=== PATIENT | female | born 1930 ===

== ENCOUNTER 2017-06-05 18:34 | Observation (INO) | payer MEDICARE, OTHER ==
--- NOTE | 2017-06-05 19:29 | ED PDOC ---
HPI: Chest Pain Time Seen by Provider: 06/05/17 18:38 Chief Complaint (Nursing): Chest Pain Chief Complaint (Provider): Chest pain History Per: Patient (due to patient's dementia, patient is a poor historian.), Family History/Exam Limitations: clinical condition (patient has dementia) Onset/Duration Of Symptoms: Days (1x week) Current Symptoms Are (Timing): Still Present Severity: Moderate Associated Symptoms: denies: Nausea, Dyspnea, Diaphoresis, Syncope Additional Complaint(s): 87 year old female with a pertinent medical history of hypertension, arthritis, gastritis, dementia, and Parkinson's disease is brought into the ED with complaints of chest pain (as per patient's daughter) that she has had for 1x week. Due to patient's dementia, patient is a poor historian. Patient has the power of an sports attorney (her daughter). Patient currently is complaining of right arm pain, and daughter states that the patient has been complaining of right shoulder and chest pain for 1x week. Family denies that the patient has had shortness of breath, fevers, cough, nausea, vomiting, diarrhea. Of note: patient's family states that the patient has been crying all week because she recently learned about her 's . PMD: Saud Sosa MD Past Medical History Reviewed: Historical Data, Nursing Documentation, Vital Signs Vital Signs: Last Vital Signs Temp 98.2 F 06/06/17 13:00 Pulse 73 06/06/17 13:00 Resp 20 06/06/17 13:00 BP 117/70 06/06/17 13:00 Pulse Ox 95 06/06/17 13:00 - Medical History PMH: Arthritis, Dementia, Gastritis, HTN, Osteoporosis, Parkinson's Disease - Surgical History Surgical History: Hernia Repair Other surgeries: hysterectomy - Family History Family History: States: No Known Family Hx - Living Arrangements Living Arrangements: Prison/Assist Lvng - Social History Current smoker - smoking cessation education provided: No Alcohol: None Drugs: Denies - Home Medications Home Medications: Ambulatory Orders Medication Instructions Recorded Acetaminophen [Tylenol (Renal)] 650 mg PO Q4 PRN 06/05/17 Albuterol/Ipratropium [Duoneb 3 3 ml INH Q4 PRN 06/05/17 mg/0.5 mg (3 ml) UD] Aspirin [Aspirin Chewable] 81 mg PO DAILY 06/05/17 Benztropine [Cogentin] 0.5 mg PO DAILY 06/05/17 Bisacodyl [Dulcolax] 10 mg RC DAILY PRN 06/05/17 Donepezil [Aricept] 10 mg PO DAILY 06/05/17 Famotidine [Pepcid] 20 mg PO DAILY 06/05/17 Levothyroxine [Synthroid] 25 mcg PO DAILY 06/05/17 Losartan Potassium 25 mg PO DAILY 06/05/17 Memantine [Namenda] 10 mg PO DAILY 06/05/17 Metoprolol Succinate [Toprol XL] 25 mg PO DAILY 06/05/17 Montelukast [Singulair] 10 mg PO DAILY 06/05/17 Nateglinide [Starlix] 60 mg PO DAILY 06/05/17 Pravastatin Sodium [Pravachol] 10 mg PO DAILY 06/05/17 Triamterene/Hydrochlorothiazid 1 cap PO DAILY 06/05/17 [Triamterene-Hctz 37.5-25 mg Cp] Lidocaine 5% [Lidoderm] 1 each TP DAILY #10 patch 06/06/17 traMADol [Ultram] 50 mg PO TID PRN #20 tab 06/06/17 - Allergies Allergies/Adverse Reactions: Allergies Allergy/AdvReac Type Severity Reaction Status Date / Time Cephalosporins Allergy RASH Verified 06/05/17 21:24 Penicillins Allergy RASH Verified 06/05/17 18:37 Quinolones Allergy RASH Verified 06/05/17 21:24 shellfish derived Allergy RASH Verified 06/05/17 21:24 Sulfa (Sulfonamide Allergy RASH Verified 06/05/17 21:24 Antibiotics) LUISA Risk Score for UA/NSTEMI - LUISA Risk Score Age > 64: YES 3 or more CAD Risk Factors: YES Known CAD (Stenosis greater than 50%): NO Aspirin use in past 7 days: YES Severe Angina: NO EKG ST changes greater than 0.5mm: NO Positive Cardiac Marker: NO LUISA Score: 3 Risk %: 13% Wells Criteria for PE - Wells Criteria for Pulmonary Embolism Clinical Signs and Symptoms of DVT: No P.E is #1 Diagnosis, or Equally Likely: No Heart Rate >100: No Immobilization at least 3 days;Surgery previous 4 weeks: No Previous, objectively diagnosed PE or DVT: No Hemoptysis: No Malignancy w/treatment within 6 months, or palliative: No Total Score: 0 Review of Systems Review Of Systems: ROS cannot be obtained secondary to pt's inabilty to answer questions. (patient is a poor historian due to dementia) Constitutional: Negative for: Fever Cardiovascular: Positive for: Chest Pain Respiratory: Negative for: Shortness of Breath Gastrointestinal: Negative for: Nausea, Vomiting, Abdominal Pain, Diarrhea Musculoskeletal: Positive for: Shoulder Pain (right), Arm Pain (right ) Physical Exam - Reviewed Nursing Documentation Reviewed: Yes Vital Signs Reviewed: Yes - Physical Exam Appears: Positive for: Well, Non-toxic, No Acute Distress Head Exam: Positive for: ATRAUMATIC, NORMOCEPHALIC Skin: Positive for: Normal Color, Warm, Dry Eye Exam: Positive for: Normal appearance, EOMI, PERRL ENT: Positive for: Normal ENT Inspection Cardiovascular/Chest: Positive for: Regular Rate, Rhythm Respiratory: Positive for: Normal Breath Sounds. Negative for: Respiratory Distress Gastrointestinal/Abdominal: Positive for: Normal Exam, Soft. Negative for: Tenderness Extremity: Positive for: Normal ROM Neurologic/Psych: Positive for: Alert, Oriented (x1, at baseline) - Laboratory Results Result Diagrams: 06/06/17 06:10 06/06/17 06:10 - ECG ECG: Positive for: Interpreted By Me, Viewed By Ri ECG Rhythm: Positive for: Normal QRS, Sinus Rhythm (normal, at 62 beats per minute), 1st Degree Heart Block (AV block). Negative for: ST/T Changes O2 Sat by Pulse Oximetry: 99 (RA) Pulse Ox Interpretation: Normal - Radiology X-Ray: Interpreted by Me, Viewed By Me X-Ray Interpretation: Mediastinum (hilar prominence), Cardiomegaly - CT Scan/US US duplex lower extremities Other Rad Studies (CT/US): Read By Radiologist, Radiology Report Reviewed (see MDM section for US findings) CT chest Other Rad Studies (CT/US): Read By Radiologist, Radiology Report Reviewed (see MDM section for CT findings) Medical Decision Making Medical Decision Makin:38 Initial impression: 87 year old female with chest pain and right arm pain. Differential diagnoses include but are not limited to acute coronary syndrome, arthritis of the right arm, and mood disorder. Initial plan: * EKG * b-type natriuretic peptide * BMP * troponin I * CBC * XRay chest one view * XRay right shoulder * aspirin 325mg PO * reevaluation 20:59 US duplex lower extremities read and reviewed by radiologist FINDINGS: Right deep veins: Normal color and spectral Doppler flow. Normal compressibility. No deep vein thrombosis from common femoral to popliteal vein. Right superficial veins: Unremarkable. Left deep veins: Normal color and spectral Doppler flow. Normal compressibility. No deep vein thrombosis from common femoral to popliteal vein. Left superficial veins: Unremarkable. Soft tissues: No popliteal cyst. IMPRESSION: 1. No evidence of DVT within the lower extremities 22:07 CT chest read and reviewed by radiologist FINDINGS: Limitations: Motion artifact - mild. Lungs: Mild centrilobular emphysematous changes. Mild peripheral atelectasis/ scarring. No consolidation. Pleural space: No pneumothorax. No significant effusion. Heart: Mild cardiomegaly. No significant pericardial effusion. Mediastinum: Small hiatal hernia. Bones/joints: Multiple small sclerotic lesions throughout visualized bones. Mild degenerative changes of spine. No acute fracture. Soft tissues: Unremarkable. Vasculature: Mild atherosclerotic disease of aorta. Enlargement of pulmonary arteries. No aneurysm. Lymph nodes: No pathologically enlarged lymph nodes. Liver: Several discrete fat-containing lesions compatible with lipomas. Fatty infiltration. Small hepatic calcification. Kidneys and ureters: Few too small to characterize lesions within LEFT kidney. IMPRESSION: 1. Cardiomegaly. 2. Pulmonary hypertension. 3. Multiple sclerotic bone lesions. DDX: Metastases, osteopoikilosis. Suggest bone scan. 4. Incidental/non-acute findings are described above Scribe Attestation: Documented by Carina Medellin, acting as a scribe for Keaton Hong MD. Provider Scribe Attestation: All medical record entries made by the Scribe were at my direction and personally dictated by me. I have reviewed the chart and agree that the record accurately reflects my personal performance of the history, physical exam, medical decision making, and the department course for this patient. I have also personally directed, reviewed, and agree with the discharge instructions and disposition. Disposition - Clinical Impression Clinical Impression: Chest pain - Patient ED Disposition Is Patient to be Admitted: Yes Discussed With : Meagan Catherine Doctor Will See Patient In The: ED Counseled Patient/Family Regarding: Studies Performed, Diagnosis - Disposition Disposition Time: 21:00 Condition: FAIR - Pt Status Changed To: Hospital Disposition Of: Observation - POA Present On Arrival: None
[2017-06-05 19:31] LABS: BASO # 0.1 K/uL (0.0-0.2); EOS # 1.4 K/uL (0.0-0.7)
[2017-06-05 19:36] LABS: BLOOD UREA NITROGEN 35 mg/dl (7-17); CALCIUM 9.6 mg/dL (8.4-10.2); CARBON DIOXIDE 25 mmol/L (22-30); GFR AFRICAN-AMERICAN > 60; GLUCOSE,RANDOM 137 mg/dL (65-105); SODIUM 133 mmol/l (132-148)
[2017-06-05 19:38] LABS: BASO % 0.7 % (0.0-2.0); CHLORIDE 98 mmol/L (98-107); EOS % 10.4 % (0.0-4.0); HEMATOCRIT 36.1 % (34.0-47.0); LYMPH # 3.5 K/uL (1.0-4.3); LYMPH % 25.7 % (20.0-40.0); MEAN CELL VOLUME 93.5 fl (81.0-99.0); MEAN CORPUSCULAR HEMOGLOBIN 31.4 pg (27.0-31.0); MEAN CORPUSCULAR HGB CONC 33.6 g/dL (33.0-37.0); MEAN PLATELET VOLUME 6.9 fl (7.2-11.7); MONO % 7.2 % (0.0-10.0); NEUT # 7.6 K/uL (1.8-7.0); NRBC % 0.5 % (0.0-0.0); WHITE BLOOD COUNT 13.5 K/uL (4.8-10.8)
--- NOTE | 2017-06-05 21:00 | US ---
EXAM: US Duplex Bilateral Lower Extremity Veins CLINICAL HISTORY: 87 years old, female; Condition or disease; Other: Swelling; Additional info: Leg swelling bilateral TECHNIQUE: Real-time ultrasound scan of the veins of the bilateral lower extremities with color Doppler flow, spectral waveform analysis and compression. COMPARISON: No relevant prior studies available. FINDINGS: Right deep veins: Normal color and spectral Doppler flow. Normal compressibility. No deep vein thrombosis from common femoral to popliteal vein. Right superficial veins: Unremarkable. Left deep veins: Normal color and spectral Doppler flow. Normal compressibility. No deep vein thrombosis from common femoral to popliteal vein. Left superficial veins: Unremarkable. Soft tissues: No popliteal cyst. IMPRESSION: 1. No evidence of DVT within the lower extremities.
--- NOTE | 2017-06-05 21:15 | CP.PCM.HP ---
History of Present Illness - History of Present Illness History of Present Illness: CC: R shoulder/R chest pain, emotional distress History largely from ER staff and chart as patient with dementia and unable to provide much HPI: This is an 87 y/o female NH resident with MHx significant for HTN, osteoarthritis, and Parkinson's disease/dementia among other conditions who is brought in by daughter with c/o R shoulder and R chest pain. Apparently this has been going on for a week. The patient has denied any SOB, f/c, cough, n/v/ d. Patient has been emotionally distressed for past several days as well after hearing about her 's . ROS: Unable to obtain 2/2 dementia MHx: HTN, osteoarthritis, Parkinson's disease/dementia, gastritis SHx: None reported Allergies: Cephalsoprins, PCN, fluouroquinolones, shellfish Medications: as per med rec Family Hx: Unable to obtain Social Hx: Lives in NH, no tobacco, no EtOH Surrogate: Daughter, info in chart PCP: Sheila Present on Admission - Present on Admission Any Indicators Present on Admission: No Past Patient History - Past Social History Alcohol: None Drugs: Denies - CARDIAC Hx Hypertension: Yes - NEUROLOGICAL Hx Dementia: Yes Hx Parkinson's Disease: Yes - MUSCULOSKELETAL/RHEUMATOLOGICAL Hx Arthritis: Yes Hx Osteoporosis: Yes - GASTROINTESTINAL Hx Gastritis: Yes - PSYCHIATRIC Hx Substance Use: No Meds Allergies/Adverse Reactions: Allergies Allergy/AdvReac Type Severity Reaction Status Date / Time Cephalosporins Allergy RASH Verified 06/05/17 21:24 Penicillins Allergy RASH Verified 06/05/17 18:37 Quinolones Allergy RASH Verified 06/05/17 21:24 shellfish derived Allergy RASH Verified 06/05/17 21:24 Sulfa (Sulfonamide Allergy RASH Verified 06/05/17 21:24 Antibiotics) Physical Exam - Constitutional Appears: No Acute Distress - Head Exam Head Exam: ATRAUMATIC, NORMOCEPHALIC - Eye Exam Eye Exam: EOMI, PERRL - ENT Exam ENT Exam: Mucous Membranes Moist - Neck Exam Neck exam: Positive for: Full Rom - Respiratory Exam Respiratory Exam: Clear to Auscultation Bilateral, NORMAL BREATHING PATTERN - Cardiovascular Exam Cardiovascular Exam: REGULAR RHYTHM, +S1, +S2 - GI/Abdominal Exam GI & Abdominal Exam: Normal Bowel Sounds, Soft - Extremities Exam Extremities exam: Positive for: normal inspection Additional comments: limited eval as patient does not comply with exam; b/l fingers noted with nail deformities likely 2/2 fungal infection - Neurological Exam Additional comments: awake, confused - Skin Skin Exam: Dry, Warm Results - Vital Signs Recent Vital Signs: Last Vital Signs Temp 98.9 F 06/05/17 18:38 Pulse 76 06/05/17 18:38 Resp 20 06/05/17 18:38 BP 136/77 06/05/17 18:38 Pulse Ox 99 06/05/17 21:05 - Labs Result Diagrams: 06/05/17 19:19 06/05/17 19:19 Labs: Laboratory Results - last 24 hr 06/05/17 06/05/17 19:19 19:19 WBC 13.5 H RBC 3.86 Hgb 12.1 Hct 36.1 MCV 93.5 MCH 31.4 H MCHC 33.6 RDW 15.0 H Plt Count 267 MPV 6.9 L Neut % (Auto) 56.0 Lymph % (Auto) 25.7 [place] % (Auto) 7.2 Eos % (Auto) 10.4 H Baso % (Auto) 0.7 Neut # 7.6 H Lymph # 3.5 [place] # 1.0 H Eos # 1.4 H Baso # 0.1 Sodium 133 Potassium 5.0 Chloride 98 Carbon Dioxide 25 Anion Gap 15 BUN 35 H Creatinine 1.0 Est GFR ( Amer) > 60 Est GFR (Non-Af Amer) 52 Random Glucose 137 H Calcium 9.6 Troponin I < 0.0120 NT-Pro-B Natriuret Pep 378 - EKG Data EKG Interpreted by: Myself EKG shows normal: Sinus rhythm - EKG Data EKG comments: 1 deg HB, poor RW progression - Imaging and Cardiology Venous US Status: Report reviewed by me Additional comment: no DVT Chest x-ray Status: Image reviewed by me (?R hilar mass) Assessment & Plan (1) Chest pain Assessment and Plan: 87 y/o female with R chest/shoulder pain in the setting of chronic osteoarthritis; also with possible adj d/o 2/2 husbands ; hilar mass. 1) Shoulder/CP, osteoarthritis -- likely pain is due to osteoarthritis -Will cont telemetry, repeat EKG AM -Will cont serial troponins -further w/u if any indication of cardiac disease -Pain mgmt -Cont ASA 325 daily 2) Possible adjustment disorder due to 's -- psych consult in AM 3) Hilar mass -- pending CT; pulm consult depending on results 4) HTN -- stable 5) DVT PPx -- SC lovenox Status: Acute (2) Shoulder pain Status: Acute (3) Adjustment disorder with depressed mood Status: Acute
--- NOTE | 2017-06-05 22:07 | CT ---
EXAM: CT Chest Without Intravenous Contrast CLINICAL HISTORY: 87 years old, female; Signs and symptoms; Shortness of breath and other: Chest pain; Patient HX: HTN parkinson's. Dementia TECHNIQUE: Axial computed tomography images of the chest without intravenous contrast. All CT scans at this facility use one or more dose reduction techniques, viz.: automated exposure control; ma/kV adjustment per patient size (including targeted exams where dose is matched to indication; i.e. head); or iterative reconstruction technique. Coronal and sagittal reformatted images were created and reviewed. COMPARISON: CR - CHEST ONE VIEW 06/05/2017 7:13:16 PM FINDINGS: Limitations: Motion artifact - mild. Lungs: Mild centrilobular emphysematous changes. Mild peripheral atelectasis/scarring. No consolidation. Pleural space: No pneumothorax. No significant effusion. Heart: Mild cardiomegaly. No significant pericardial effusion. Mediastinum: Small hiatal hernia. Bones/joints: Multiple small sclerotic lesions throughout visualized bones. Mild degenerative changes of spine. No acute fracture. Soft tissues: Unremarkable. Vasculature: Mild atherosclerotic disease of aorta. Enlargement of pulmonary arteries. No aneurysm. Lymph nodes: No pathologically enlarged lymph nodes. Liver: Several discrete fat-containing lesions compatible with lipomas. Fatty infiltration. Small hepatic calcification. Kidneys and ureters: Few too small to characterize lesions within LEFT kidney. IMPRESSION: 1. Cardiomegaly. 2. Pulmonary hypertension. 3. Multiple sclerotic bone lesions. DDX: Metastases, osteopoikilosis. Suggest bone scan. 4. Incidental/non-acute findings are described above.
[2017-06-06 07:08] LABS: HEMATOCRIT 33.9 % (34.0-47.0); MEAN CELL VOLUME 92.5 fl (81.0-99.0); MEAN CORPUSCULAR HEMOGLOBIN 31.4 pg (27.0-31.0); MEAN CORPUSCULAR HGB CONC 33.9 g/dL (33.0-37.0); RED CELL DISTRIBUTION WIDTH 15.3 % (11.5-14.5); WHITE BLOOD COUNT 9.8 K/uL (4.8-10.8)
[2017-06-06 07:17] LABS: BLOOD UREA NITROGEN 30 mg/dl (7-17); CALCIUM 9.6 mg/dL (8.4-10.2); CARBON DIOXIDE 28 mmol/L (22-30); CHLORIDE 101 mmol/L (98-107); GFR AFRICAN-AMERICAN > 60; GLUCOSE,RANDOM 135 mg/dL (65-105); SODIUM 138 mmol/l (132-148)
[2017-06-06 07:20] LABS: POTASSIUM 4.4 MMOL/L (3.6-5.0)
[2017-06-06] MEDS ORDERED: Enoxaparin 40 mg Syringe SC SCH (09:00)
--- NOTE | 2017-06-06 09:14 | RAD ---
PROCEDURE: CHEST RADIOGRAPH, 1 VIEW HISTORY: chest pain COMPARISON: Subsequent chest CT dated 06/05/2017 21:10 p.m. FINDINGS: LUNGS: Prominent right hilar density appears to be a function of pulmonary arterial hypertension and rotation of the patient to the right slightly. Left base is difficult to penetrate due to cardiomegaly but no infiltrate was demonstrated in the chest CT following this exam. PLEURA: No pneumothorax or pleural fluid seen. CARDIOVASCULAR: Cardiomegaly is noted with prominent right hilum as discussed above. OSSEOUS STRUCTURES: Multilevel thoracic spondylosis. VISUALIZED UPPER ABDOMEN: Normal. OTHER FINDINGS: None. IMPRESSION: Cardiomegaly is appreciate with the promontory hilum with pulmonary arterial hypertension identified in the chest CT subsequently performed on 06/05/2017 as discussed above. No definite hilar mass was identified in the same CT. No acute infiltrate or pleural effusion identified.
--- NOTE | 2017-06-06 09:30 | RAD ---
PROCEDURE: Radiographs of the Right Shoulder HISTORY: right shoulder pain COMPARISON: No prior. FINDINGS: BONES: There is no acute fracture identified or suspicious lytic or blastic change either. Diffuse osteopenia suggests osteoporosis. . JOINTS: Moderate degenerative changes seen at the acromioclavicular and glenohumeral joints which otherwise appear unremarkable. SOFT TISSUES: Normal. OTHER FINDINGS: None. IMPRESSION: No acute or fracture dislocation. Degenerative changes are seen at the acromioclavicular and glenohumeral joints.
[2017-06-06] MEDS ORDERED: Lidocaine 5% Patch TD SCH (11:30)
[2017-06-06 13:10] VITALS: BP 117/70; PULSE 73; RESP 20; TEMP 98.2
--- NOTE | 2017-06-06 13:13 | CARD ---
APPROVED REPORT EKG Measurement Heart [id number] <Conclusion> Sinus rhythm with 1st degree AV block Cannot rule out Anterior infarct, age undetermined Abnormal ECG
--- NOTE | 2017-06-06 13:35 | CP.PCM.CON ---
History of Present Illness - History of Present Illness History of Present Illness: psychiatry consult ordered by dr. quevedo reason: "emotional distress 2/2 to 's " cc: my shoulder hurts hpi: pt with history of parkinsons disorder, dementia. she apparently has been crying for last two weeks after finding out about husbands , per chart. apparently pt's daughter is the POA. the patient was seen along with myrna ( lang interpreter) pt unable to give any history as she is only oriented to self. she apparently was agitated last night and received haldol. past psych: uknown. medical: parkinsons, dementia per history social: sister is poa. mse: alert, oriented to self. denies a/v hallucinations. mood is anxious. affect constricted. grossly impaired memory. poor i/j. assessment: parkinsons disease dementia r/o delirium adjustment disorder with depressed mood recommendaton: would not give haldol secondary to her dx of parkinsons would give low dose seroquel 12.5mg q6hr prn agitation/delirium pt appears to need 24 hour supervision Past Patient History - Past Medical History & Family History Past Medical History?: Yes - Past Social History Smoking Status: Never Smoked - CARDIAC Hx Congestive Heart Failure: Yes Hx Hypertension: Yes - PULMONARY Hx Chronic Obstructive Pulmonary Disease (COPD): Yes - NEUROLOGICAL Hx Alzheimer's Disease: Yes Hx Dementia: Yes Hx Parkinson's Disease: Yes - HEENT Hx HEENT Problems: No - ENDOCRINE/METABOLIC Hx Endocrine Disorders: Yes Hx Hypothyroidism: Yes - HEMATOLOGICAL/ONCOLOGICAL Hx AIDS: No Hx Human Immunodeficiency Virus (HIV): No - INTEGUMENTARY Hx Dermatological Problems: No - MUSCULOSKELETAL/RHEUMATOLOGICAL Hx Musculoskeletal Disorders: Yes Hx Falls: No Hx Osteoarthritis: Yes Hx Osteoporosis: Yes - GASTROINTESTINAL Hx Gastrointestinal Disorders: Yes Hx Gastritis: Yes - GENITOURINARY/GYNECOLOGICAL Hx Genitourinary Disorders: No - PSYCHIATRIC Hx Depression: Yes Hx Substance Use: No - SURGICAL HISTORY Hx Herniorrhaphy: Yes Hx Hysterectomy: Yes - ANESTHESIA Hx Anesthesia: Yes Hx Anesthesia Reactions: No Hx Malignant Hyperthermia: No Has any member of the family had a problem w/ anesthesia?: No Meds Home Medications: Home Medication List Medication Instructions Recorded Confirmed Type Lidocaine 5% [Lidoderm] 1 each TP DAILY #10 patch 06/06/17 Rx traMADol [Ultram] 50 mg PO TID PRN #20 tab 06/06/17 Rx Allergies/Adverse Reactions: Allergies Allergy/AdvReac Type Severity Reaction Status Date / Time Cephalosporins Allergy RASH Verified 06/05/17 21:24 Penicillins Allergy RASH Verified 06/05/17 18:37 Quinolones Allergy RASH Verified 06/05/17 21:24 shellfish derived Allergy RASH Verified 06/05/17 21:24 Sulfa (Sulfonamide Allergy RASH Verified 06/05/17 21:24 Antibiotics) - Medications Medications: Current Medications Acetaminophen (Tylenol 325mg Tab) 650 mg PO Q6 PRN PRN Reason: Pain, Mild (1-3) Aspirin (Aspirin) 325 mg PO DAILY [facility] Last Admin: 06/06/17 09:25 Dose: 325 mg Enoxaparin Sodium (Lovenox) 40 mg SC DAILY [facility] PRN Reason: Protocol Last Admin: 06/06/17 09:26 Dose: 40 mg Lidocaine (Lidoderm) 1 ea TD DAILY [facility] Tramadol HCl (Ultram) 50 mg PO Q6 PRN PRN Reason: Pain, severe (8-10) Results - Vital Signs Recent Vital Signs: Last Vital Signs Temp 98.2 F 06/06/17 13:00 Pulse 73 06/06/17 13:00 Resp 20 06/06/17 13:00 BP 117/70 06/06/17 13:00 Pulse Ox 95 06/06/17 13:00 - Labs Result Diagrams: 06/06/17 06:10 06/06/17 06:10 Labs: Laboratory Results - last 24 hr 06/06/17 06/06/17 06:10 06:10 WBC 9.8 RBC 3.67 L Hgb 11.5 L Hct 33.9 L MCV 92.5 MCH 31.4 H MCHC 33.9 RDW 15.3 H Plt Count 269 Sodium 138 Potassium 4.4 Chloride 101 Carbon Dioxide 28 Anion Gap 13 BUN 30 H Creatinine 1.0 Est GFR ( Amer) > 60 Est GFR (Non-Af Amer) 52 Random Glucose 135 H Calcium 9.6 Troponin I < 0.0120
--- NOTE | 2017-06-06 19:22 | CP.PCM.DIS ---
Provider - Provider Date of Admission: 06/05/17 21:06 Attending physician: Meagan Catherine MD Primary care physician: Dr. Sosa Consults: psychiatry consult Time Spent in preparation of Discharge (in minutes): 15 Hospital Course - Lab Results Lab Results: Most Recent Lab Values WBC 9.8 K/uL (4.8-10.8) 06/06/17 06:10 RBC 3.67 Mil/uL (3.80-5.20) L 06/06/17 06:10 Hgb 11.5 g/dL (12.0-16.0) L 06/06/17 06:10 Hct 33.9 % (34.0-47.0) L 06/06/17 06:10 MCV 92.5 fl (81.0-99.0) 06/06/17 06:10 MCH 31.4 pg (27.0-31.0) H 06/06/17 06:10 MCHC 33.9 g/dL (33.0-37.0) 06/06/17 06:10 RDW 15.3 % (11.5-14.5) H 06/06/17 06:10 Plt Count 269 K/uL (130-400) 06/06/17 06:10 MPV 6.9 fl (7.2-11.7) L 06/05/17 19:19 Neut % (Auto) 56.0 % (50.0-75.0) 06/05/17 19:19 Lymph % (Auto) 25.7 % (20.0-40.0) 06/05/17 19:19 [place] % (Auto) 7.2 % (0.0-10.0) 06/05/17 19:19 Eos % (Auto) 10.4 % (0.0-4.0) H 06/05/17 19:19 Baso % (Auto) 0.7 % (0.0-2.0) 06/05/17 19:19 Neut # 7.6 K/uL (1.8-7.0) H 06/05/17 19:19 Lymph # 3.5 K/uL (1.0-4.3) 06/05/17 19:19 [place] # 1.0 K/uL (0.0-0.8) H 06/05/17 19:19 Eos # 1.4 K/uL (0.0-0.7) H 06/05/17 19:19 Baso # 0.1 K/uL (0.0-0.2) 06/05/17 19:19 Sodium 138 mmol/l (132-148) 06/06/17 06:10 Potassium 4.4 MMOL/L (3.6-5.0) 06/06/17 06:10 Chloride 101 mmol/L (98-107) 06/06/17 06:10 Carbon Dioxide 28 mmol/L (22-30) 06/06/17 06:10 Anion Gap 13 (10-20) 06/06/17 06:10 BUN 30 mg/dl (7-17) H 06/06/17 06:10 Creatinine 1.0 mg/dL (0.7-1.2) 06/06/17 06:10 Est GFR ( Amer) > 60 06/06/17 06:10 Est GFR (Non-Af Amer) 52 06/06/17 06:10 Random Glucose 135 mg/dL (65-105) H 06/06/17 06:10 Calcium 9.6 mg/dL (8.4-10.2) 06/06/17 06:10 Troponin I < 0.0120 ng/mL (0.00-0.120) 06/06/17 06:10 NT-Pro-B Natriuret Pep 378 pg/ml (0-900) 06/05/17 19:19 - Hospital Course Hospital Course: 87 y/o female [place] resident with MHx significant for HTN, osteoarthritis, and Parkinson's disease/dementia among other conditions brought in by daughter with c/o R shoulder and R chest pain. Apparently this has been going on for a week. The patient has denied any SOB, f/c, cough, n/v/d. Patient has been emotionally distressed for past several days as well after hearing about her 's . patient was placed under observation in telemetry Shoulder Xray showed no acute pathology, no fracture no dislocation , DJD seen Started on PO pain medication Ultram for severe pain and lidoderm patch topical psych consulted for her adjustment disorder and seroquel recommended patient is hemodynamically stable Will discharge back to [place] Follow up with PMD Dr. Sosa 1. Shoulder/CP secondary to osteoarthritis 2. Adjustment disorder due to 's psych consult appreciated Started [place] 1.5 mg po Q6 PRN for agittaion Avoid haldol 3. Hilar mass ruled out CT chest showed no hilar mass 4. HTN stable continue dianne emeds 5. Hypothyroidism continue Synthroid 6. parkinson / dementia continue same treatment Discharge Exam - Head Exam Head Exam: ATRAUMATIC, NORMOCEPHALIC - Eye Exam Eye Exam: PERRL Pupil Exam: NORMAL ACCOMODATION - ENT Exam ENT Exam: Normal Exam - Neck Exam Neck exam: Full Rom, Normal Inspection - Respiratory Exam Respiratory Exam: Clear to PA & Lateral, NORMAL BREATHING PATTERN. absent: Rales, Rhonchi, Wheezes, Respiratory Distress - Cardiovascular Exam Cardiovascular Exam: REGULAR RHYTHM, RRR, +S1, +S2. absent: JVD - GI/Abdominal Exam GI & Abdominal Exam: Normal Bowel Sounds, Soft. absent: Distended, Guarding, Rebound, Tenderness - Rectal Exam Rectal Exam: Deferred - Extremities Exam Extremities exam: normal capillary refill, pedal pulses present Additional comments: right shoulder tenderness with palpation , no deformity - Neurological Exam Neurological exam: Alert Additional comments: awake, demented , tearful - Skin Skin Exam: Dry, Intact, Warm Discharge Plan - Discharge Medications Prescriptions: Lidocaine 5% [Lidoderm] 1 each TP DAILY #10 patch traMADol [Ultram] 50 mg PO TID PRN #20 tab PRN Reason: Pain, Severe (8-10) - Follow Up Plan Condition: STABLE Disposition: TRANSF TO SNF Instructions: Chest Pain (DC), Osteoarthritis (DC) Referrals: Saud Sosa MD [Family Provider] -
[2017-06-09 09:33] VITALS: O2SAT 99
== END 2017-06-06 15:25 ==
LOC: H.ER 18:34 → H.ERHOLD 21:06 → INTOOBSV 21:06 → H.TEL 23:09
PROVIDERS: ADMIT Internal Medicine; ATTEND Internal Medicine
DX: R07.89 Other chest pain (principal); M19.011 Primary osteoarthritis, right shoulder; G30.9 Alzheimer's disease, unspecified; F02.80 Dementia in other diseases classified elsewhere, unspecified severity, without behavioral disturbance, psychotic disturbance, mood disturbance, and anxiety; G20 Parkinson's disease; I27.2 Other secondary pulmonary hypertension; F43.21 Adjustment disorder with depressed mood; K29.70 Gastritis, unspecified, without bleeding; E03.9 Hypothyroidism, unspecified; I10 Essential (primary) hypertension; M81.0 Age-related osteoporosis without current pathological fracture; J44.9 Chronic obstructive pulmonary disease, unspecified; Z79.82 Long term (current) use of aspirin; Z88.0 Allergy status to penicillin; Z88.3 Allergy status to other anti-infective agents; Z91.013 Allergy to seafood
CPT/HCPCS: 36415; 71010; 71250; 73030; 80048; 83880; 84484; 85025; 85027; 93005; 93970; 99285; G0378; J1630; J1650